=== PATIENT | male | born 1975 | race Caucasian/White ===

== ENCOUNTER → 2016-11-20 | Outpatient (CLI) | payer OTHER ==
[~2016-11-20] MED LIST: E-Z-GAS II EFFERVESCENT PACKET (SODIUM BICARB./CITRIC ACID/SIMETHICONE) As Ordered ONE; E-Z-HD 98% w/w 340GM SUSP BTL As Ordered ONE; E-Z-PAQUE 96% w/w SUSP 176GM BTL As Ordered ONE; LISI10TA4 PO
--- NOTE | 2016-11-20 15:34 | REP ---
ESOPHAGRAM, AIR CONTRAST: The procedure was performed under the direct supervision of Dr. Gómez. The images were reviewed with Dr. Gómez. 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 There is no change compared to a previous chest x-ray dated 07/21/2015. Liquid barium and gas producing granules were given in the erect position as well as liquid barium in the prone oblique positions in order to perform a double contrast esophagram examination. The oral and pharyngeal stages of deglutition are unremarkable. Esophageal transport is prompt and efficient. There is a hiatal hernia present. There is mucosal irregularity at the GE junction which may represent reflux esophagitis. However, gastroesophageal reflux is not demonstrated on this examination. IMPRESSION: There is a hiatal hernia present. There is mucosal irregularity at the GE junction which may represent reflux esophagitis. 55 seconds of fluoroscopic time was utilized for this procedure. Reviewed by SIMI Sanchez 11/20/2016 04:14 PEdited and Signed by Anselmo Gómez MD 11/20/2016 05:24 P
== END ==
LOC: M RAD 08:59
PROVIDERS: ATTEND Physician Assistant Medical
DX: K44.0 Diaphragmatic hernia with obstruction, without gangrene (principal); K31.89 Other diseases of stomach and duodenum; R13.10 Dysphagia, unspecified; R12 Heartburn

== ENCOUNTER → 2016-11-30 | Outpatient (CLI) | payer OTHER ==
[~2016-11-30] VITALS: Ht 165.1 cm; Wt 88.5 kg
[~2016-11-30] MED LIST changes: -E-Z-GAS II EFFERVESCENT PACKET (SODIUM BICARB./CITRIC ACID/SIMETHICONE) As Ordered ONE; -E-Z-HD 98% w/w 340GM SUSP BTL As Ordered ONE; -E-Z-PAQUE 96% w/w SUSP 176GM BTL As Ordered ONE; +NS 1,000 ML IV ONE; +PROPOFOL 200 MG/20 ML VIAL As Ordered ONE
--- NOTE | 2016-11-30 15:43 | ROOR ---
Patient Name: Devendra Garcia Procedure Date: 11/30/2016 3:18 PM Date of : 1975 Age: 41 Room: [facility] Gender: Male Note Status: Finalized Procedure: Upper GI endoscopy Indications: Dysphagia, Heartburn, Chest pain (non cardiac) Providers: Andre QUIJANO MD Referring MD: Ra Cronni MD Requesting Provider: Medicines: Monitored Anesthesia Care Complications: No immediate complications. Procedure: Pre-Anesthesia Assessment: - The heart rate, respiratory rate, oxygen saturations, blood pressure, adequacy of pulmonary ventilation, and response to care were monitored throughout the procedure. The Endoscope was introduced through the mouth, and advanced to the second part of duodenum. The upper GI endoscopy was accomplished without difficulty. The patient tolerated the procedure well. Findings: The Z-line was variable and was found 37 cm from the incisors. This was biopsied with a cold forceps for histology. Mildly severe esophagitis was found at the gastroesophageal junction. Biopsies were taken with a cold forceps for histology. One mild benign-appearing, intrinsic stenosis was found. And was traversed. A TTS dilator was passed through the scope. Dilation with an 18-19-20 mm balloon dilator was performed to 19 mm. The dilation site was examined and showed complete resolution of luminal narrowing. Very small (insignificant) Hiatal Hernia. The entire examined stomach was normal. The examined duodenum was normal. Biopsies were taken with a cold forceps for histology. Impression: - Mild esophagitis and Z-line variable, 37 cm from the incisors. Biopsied. - Slight/minimal Schatzki ring. Dilated to 19 mm. - Mid esophagus biopsied to rule out eosinophilic esophagitis - Normal stomach with very small (insignificant) Hiatal Hernia. - Normal examined duodenum. Biopsied. Recommendation: - Use Prilosec (omeprazole) 40 mg PO BID indefinitely. - Telephone endoscopist for pathology results in 2 weeks. - (the script was sent to your pharmacy on file) Andre Quijano MD Andre QUIJANO MD 11/30/2016 3:42:46 PM This report has been signed electronically. Number of Addenda: 0 Note Initiated On: 11/30/2016 3:18 PM Estimated Blood Loss: Estimated blood loss: none.
[2016-11-30 16:17] VITALS: BP 135/86
== END ==
LOC: M OPP 14:02
PROVIDERS: ATTEND Internal Medicine Gastroenterology
DX: R13.10 Dysphagia, unspecified (principal); R12 Heartburn; R07.89 Other chest pain; K22.2 Esophageal obstruction; K20.9 Esophagitis, unspecified; K22.8 Other specified diseases of esophagus; I10 Essential (primary) hypertension; I51.9 Heart disease, unspecified; J45.909 Unspecified asthma, uncomplicated; Z85.820 Personal history of malignant melanoma of skin; Z79.899 Other long term (current) drug therapy

== ENCOUNTER → 2017-04-05 | Outpatient (REF) | payer OTHER ==
[~2017-04-05] MED LIST changes: -NS 1,000 ML IV ONE; -PROPOFOL 200 MG/20 ML VIAL As Ordered ONE
[2017-04-05 17:11] LABS: ANION GAP 6 MEQ/L (8-16); BLOOD UREA NITROGEN 19 MG/DL (7-18); CALCIUM LEVEL 8.9 MG/DL (8.5-10.1); CARBON DIOXIDE LEVEL 30 MEQ/L (21-32); CHLORIDE LEVEL 107 MEQ/L (98-107); CREATININE FOR GFR 1.15 MG/DL (0.70-1.30); GLOMERULAR FILTRATION RATE > 60.0 (>60); GLUCOSE, FASTING 99 MG/DL (70-105); POTASSIUM SERUM 4.2 MEQ/L (3.5-5.1); SODIUM LEVEL 143 MEQ/L (136-145)
== END ==
LOC: M SFHCCLAY 09:52
PROVIDERS: ATTEND Family Medicine
DX: I10 Essential (primary) hypertension (principal)

== ENCOUNTER → 2018-03-19 | Outpatient (REF) | payer OTHER ==
[2018-03-19 18:38] LABS: ALBUMIN/GLOBULIN RATIO 1.38 (1.00-1.93); ALKALINE PHOSPHATASE 65 U/L (45-117); ALT/SGPT 77 U/L (12-78); ANION GAP 6 MEQ/L (8-16); AST/SGOT 30 U/L (7-37); BILIRUBIN,TOTAL 0.3 MG/DL (0.2-1.0); BLOOD UREA NITROGEN 14 MG/DL (7-18); CALCIUM LEVEL 8.9 MG/DL (8.5-10.1); CARBON DIOXIDE LEVEL 28 MEQ/L (21-32); CHLORIDE LEVEL 110 MEQ/L (98-107); CREATININE FOR GFR 1.16 MG/DL (0.70-1.30); GLOMERULAR FILTRATION RATE > 60.0 (>60); GLUCOSE, FASTING 104 MG/DL (70-100); POTASSIUM SERUM 4.2 MEQ/L (3.5-5.1); SODIUM LEVEL 144 MEQ/L (136-145); TOTAL PROTEIN 6.9 GM/DL (6.4-8.2)
== END ==
LOC: M SFHCCLAY 17:08
DX: I10 Essential (primary) hypertension (principal); R94.5 Abnormal results of liver function studies

== ENCOUNTER → 2019-07-07 | Outpatient (CLI) | payer OTHER ==
--- NOTE | 2019-07-08 02:18 | REP ---
Clinical: Trauma. Technique: AP and lateral views of the left forearm. Findings: Osseous structures, joint spaces, and surrounding soft tissues are relatively normal for age. No acute fracture or dislocation. No subcutaneous emphysema. No foreign body. Impression: Unremarkable examination. No acute fracture or dislocation. Electronically Signed by Ross Whiteside MD 07/08/2019 02:09 A
== END ==
LOC: M CLY 16:20
PROVIDERS: ATTEND Family Medicine
DX: M79.632 Pain in left forearm (principal)

== ENCOUNTER → 2020-07-12 | Outpatient (CLI) | payer OTHER ==
[~2020-07-12] MED LIST changes: +LISI10TA22 PO; -LISI10TA4 PO
--- NOTE | 2020-07-13 09:24 | REP ---
INDICATION: M25.561 ACUTE PAIN OF RIGHT KNEE COMPARISON: None. TECHNIQUE: AP, lateral, bilateral oblique and sunrise views. FINDINGS: The osseous structures and joint spaces are intact and normal/age-appropriate. There is no evidence for acute fracture or dislocation. No joint effusion is appreciated. No overt arthritic changes are appreciated. No subcutaneous emphysema or radiodense foreign body. Lateral view demonstrates mild prepatellar swelling which is nonspecific. IMPRESSION: No acute fracture or dislocation. No overt arthritic changes. <Electronically signed by Ross Whiteside > 07/13/20 09
== END ==
LOC: M CLY 14:12
PROVIDERS: ATTEND Physician Assistant
DX: M25.561 Pain in right knee (principal)

== ENCOUNTER → 2021-03-07 | Outpatient (REF) | payer OTHER | LOC: M SFHCCLAY 16:33 | PROVIDERS: ATTEND Family Medicine | DX: L57.0 Actinic keratosis (principal) ==

== ENCOUNTER → 2021-06-19 | Outpatient (REF) | payer OTHER | LOC: M SFHCCLAY 13:48 | PROVIDERS: ATTEND Physician Assistant | DX: R50.9 Fever, unspecified (principal) ==

== ENCOUNTER → 2021-07-27 | Outpatient (REF) | payer OTHER ==
[2021-07-27 16:31] LABS: ALBUMIN 3.9 GM/DL (3.2-5.2); ALT/SGPT 190 U/L (12-78); BILIRUBIN,TOTAL 0.9 MG/DL (0.2-1.0); BLOOD UREA NITROGEN 13 MG/DL (7-18); CALCIUM LEVEL 9.2 MG/DL (8.5-10.1); CARBON DIOXIDE LEVEL 34 MEQ/L (21-32); CHLORIDE LEVEL 105 MEQ/L (98-107); CHOLESTEROL LEVEL 188 MG/DL (<200); CREATININE FOR GFR 1.27 MG/DL (0.70-1.30); GLOMERULAR FILTRATION RATE > 60.0 (>60); GLUCOSE, FASTING 101 MG/DL (70-100); HDL CHOLESTEROL 40 MG/DL (>40); LDL CHOLESTEROL 126 MG/DL (<100); NON-HDL-C 148 MG/DL; POTASSIUM SERUM 3.8 MEQ/L (3.5-5.1); SODIUM LEVEL 145 MEQ/L (136-145); TOTAL PROTEIN 7.3 GM/DL (6.4-8.2); TRIGLYCERIDES LEVEL 111 MG/DL (<150); URIC ACID 8.8 MG/DL (3.5-7.2)
== END ==
LOC: M SFHCCLAY 09:20
PROVIDERS: ATTEND Family Medicine
DX: Z00.00 Encounter for general adult medical examination without abnormal findings (principal); M10.9 Gout, unspecified; I10 Essential (primary) hypertension

== ENCOUNTER → 2022-12-07 | Outpatient (REF) | payer OTHER ==
[2022-12-07 18:14] LABS: BASO # 0.1 10^3/uL (0.0-0.2); BASO % 0.8 % (0.0-1.0); EOS # 0.3 10^3/uL (0.0-0.5); EOS % 3.8 % (0.0-3.0); HEMATOCRIT 48.5 % (42.0-52.0); HEMOGLOBIN 16.6 g/dl (13.5-17.5); LYMPH % 25.6 % (24.0-44.0); MEAN CORPUSCULAR HEMOGLOBIN 29.6 pg (27.0-33.0); MEAN CORPUSCULAR HGB CONC 34.2 g/dl (32.0-36.5); MEAN CORPUSCULAR VOLUME 86.5 fl (80.0-96.0); MONO # 0.6 10^3/uL (0.0-0.8); MONO % 7.9 % (2.0-8.0); NEUTROPHILS # 4.7 10^3/uL (1.5-8.5); NEUTROPHILS % 61.6 % (36.0-66.0); PLATELET COUNT, AUTOMATED 284 10^3/uL (150-450); RED BLOOD COUNT 5.61 10^6/uL (4.30-6.10); WHITE BLOOD COUNT 7.6 10^3/uL (4.0-10.0)
[2022-12-07 18:27] LABS: CALCIUM LEVEL 8.9 MG/DL (8.5-10.1); CHOLESTEROL RISK RATIO 4.04 (<5); CREATININE FOR GFR 1.38 MG/DL (0.70-1.30); GLOMERULAR FILTRATION RATE 58.3 (>60); HDL CHOLESTEROL 39.8 MG/DL (>40); LDL CHOLESTEROL 104.2 MG/DL (<100); NON-HDL-C 121.2 MG/DL; POTASSIUM SERUM 3.9 MMOL/L (3.5-5.1); TOTAL PROTEIN 6.9 G/DL (5.7-8.2)
== END ==
LOC: M SFHCCLAY 09:48
PROVIDERS: ATTEND Family Medicine
DX: I10 Essential (primary) hypertension (principal); E78.00 Pure hypercholesterolemia, unspecified

== ENCOUNTER → 2023-05-06 | Outpatient (REF) | payer OTHER ==
[2023-05-06 12:25] LABS: HEMATOCRIT 47.1 % (42.0-52.0); HEMOGLOBIN 16.2 g/dl (13.5-17.5); MEAN CORPUSCULAR HEMOGLOBIN 29.8 pg (27.0-33.0); MEAN CORPUSCULAR HGB CONC 34.4 g/dl (32.0-36.5); MEAN CORPUSCULAR VOLUME 86.6 fl (80.0-96.0); PLATELET COUNT, AUTOMATED 248 10^3/uL (150-450); RED BLOOD COUNT 5.44 10^6/uL (4.30-6.10); WHITE BLOOD COUNT 8.3 10^3/uL (4.0-10.0)
[2023-05-06 12:30] LABS: HEMOGLOBIN A1c 5.2 % (4.0-6.0)
[2023-05-06 12:46] LABS: BLOOD UREA NITROGEN 14 MG/DL (9-23); CALCIUM LEVEL 8.7 MG/DL (8.5-10.1); CARBON DIOXIDE LEVEL 29 MMOL/L (20-31); CHLORIDE LEVEL 108 MMOL/L (98-107); CREATININE FOR GFR 1.17 MG/DL (0.70-1.30); GLOMERULAR FILTRATION RATE > 60.0 (>60); GLUCOSE, FASTING 107 MG/DL (60-100); POTASSIUM SERUM 3.9 MMOL/L (3.5-5.1); SODIUM LEVEL 144 MMOL/L (136-145)
== END ==
LOC: M SFHCCLAY 08:59
PROVIDERS: ATTEND Family Medicine
DX: R55 Syncope and collapse (principal); I10 Essential (primary) hypertension

== ENCOUNTER → 2023-11-15 | Outpatient (REF) | payer OTHER ==
[2023-11-15 18:43] LABS: ALBUMIN 4.1 G/DL (3.2-5.2); ALKALINE PHOSPHATASE 78 U/L (46-116); ALT/SGPT 47 U/L (7.0-40); AST/SGOT 23 U/L (<34); BILIRUBIN,TOTAL 0.7 MG/DL (0.3-1.2); BLOOD UREA NITROGEN 23 MG/DL (9-23); CALCIUM LEVEL 9.5 MG/DL (8.5-10.1); CARBON DIOXIDE LEVEL 30 MMOL/L (20-31); CHLORIDE LEVEL 106 MMOL/L (98-107); CHOLESTEROL LEVEL 180 MG/DL (<200); CHOLESTEROL RISK RATIO 3.92 (<5); CREATININE FOR GFR 1.33 MG/DL (0.70-1.30); GLOMERULAR FILTRATION RATE > 60.0 (>56); GLUCOSE, FASTING 103 MG/DL (60-100); HDL CHOLESTEROL 45.9 MG/DL (>40); LDL CHOLESTEROL 111.9 MG/DL (<100); NON-HDL-C 134.1 MG/DL; SODIUM LEVEL 144 MMOL/L (136-145); TOTAL PROTEIN 7.2 G/DL (5.7-8.2); TRIGLYCERIDES LEVEL 111 MG/DL (<150)
[2023-11-15 18:47] LABS: HEMOGLOBIN A1c 5.3 % (4.0-6.0)
== END ==
LOC: M SFHCCLAY 11:18
PROVIDERS: ATTEND Physician Assistant
DX: I10 Essential (primary) hypertension (principal); J02.9 Acute pharyngitis, unspecified

== ENCOUNTER → 2024-12-16 | Outpatient (REF) | payer OTHER ==
[2024-12-16 13:14] LABS: ALT/SGPT 77.0 U/L (7.0-40); AST/SGOT 44.0 U/L (<34); CALCIUM LEVEL 8.7 MG/DL (8.5-10.1); CARBON DIOXIDE LEVEL 27.0 MMOL/L (20-31); CHLORIDE LEVEL 105.0 MMOL/L (98-107); CHOLESTEROL LEVEL 161.0 MG/DL (<200); CHOLESTEROL RISK RATIO 3.66 (<5); CREATININE FOR GFR 1.22 MG/DL (0.70-1.30); GLOMERULAR FILTRATION RATE 71.8 (>56); LDL CHOLESTEROL 97.3 MG/DL (<100); NON-HDL-C 117.1 MG/DL; POTASSIUM SERUM 3.8 MMOL/L (3.5-5.1); SODIUM LEVEL 144.0 MMOL/L (136-145); TRIGLYCERIDES LEVEL 99.0 MG/DL (<150)
[2024-12-16 13:29] LABS: ESTIMATED AVERAGE GLUCOSE 105.0 MG/DL (60-110)
== END ==
LOC: M SFHCCLAY 07:48
PROVIDERS: ATTEND Physician Assistant
DX: Z12.11 Encounter for screening for malignant neoplasm of colon (principal); I10 Essential (primary) hypertension; Z85.820 Personal history of malignant melanoma of skin; Z87.39 Personal history of other diseases of the musculoskeletal system and connective tissue; K76.0 Fatty (change of) liver, not elsewhere classified; E78.00 Pure hypercholesterolemia, unspecified